=== PATIENT | male | born 2000 | race Caucasian/White ===

== ENCOUNTER 2021-06-19 23:42 | Emergency (ER) | payer OTHER ==
[~2021-06-19] VITALS: Ht 170.2 cm; Wt 77.0 kg
[2021-06-20 00:25] LABS: HEMATOCRIT 42.8 % (39.0-50.0); HEMOGLOBIN 14.4 g/dl (14.0-18.0); MEAN CELL VOLUME 92.8 fL CALC (80.0-100.0); MEAN CORPUSCULAR HGB 31.2 pG CALC (26.0-32.0); MEAN CORPUSCULAR HGB CONC 33.6 g/dL CAL (32.0-36.0); NEUT# 11.23 thou/uL (1.82-7.42); RED BLOOD COUNT 4.61 mill/uL (4.70-6.10); RED CELL DISTRI WIDTH 12.2 % (11.5-15.5)
[2021-06-20 00:32] LABS: ALBUMIN 4.6 g/dL (3.2-5.0); ALKALINE PHOSPHATASE 69 u/l (38-126); ANION GAP 20 (6-22 (CALC)); BILIRUBIN, TOTAL 0.6 mg/dL (0.0-1.4); BUN 14 mg/dL (9-20); BUN/CREATININE RATIO 14 (12-20 (CALC)); CARBON DIOXIDE 19 mmol/l (22-30); CHLORIDE 92 mmol/l (95-108); ETHYL ALCOHOL 0 mg/dl (0-30); GFR > 60 ML/MIN (>=60 (CALC)); GFR FOR AFR.AMER. > 60 ML/MIN (>=60 (CALC)); MAGNESIUM 1.3 mg/dL (1.6-2.3); POTASSIUM 3.6 mmol/l (3.5-5.1); SGOT/AST 39 u/l (17-59); SODIUM 128 mmol/l (137-146); TOTAL PROTEIN 7.3 g/dL (6.3-8.2)
[2021-06-20 00:34] LABS: URINE BILIRUBIN - DIPSTICK NEGATIVE (NEGATIVE); URINE BLOOD DIPSTICK NEGATIVE (NEGATIVE); URINE COLOR YELLOW; URINE GLUCOSE - DIPSTICK NEGATIVE (NEGATIVE); URINE KETONE NEGATIVE (NEGATIVE); URINE LEUK ESTERASE NEGATIVE (NEGATIVE); URINE PROTEIN - DIPSTICK NEGATIVE (NEG-TRACE); URINE SPECIFIC GRAVITY 1.015; URINE UROBILINOGEN - DIPSTICK 0.2 E.U./dL (0.2)
[2021-06-20 00:36] LABS: URINE NITRITE - DIPSTICK NEGATIVE (Negative)
[2021-06-20 06:49] LABS: HEMATOCRIT 41.4 % (39.0-50.0); HEMOGLOBIN 13.8 g/dl (14.0-18.0); MEAN CELL VOLUME 93.2 fL CALC (80.0-100.0); MEAN CORPUSCULAR HGB 31.1 pG CALC (26.0-32.0); MEAN CORPUSCULAR HGB CONC 33.3 g/dL CAL (32.0-36.0); NEUT# 7.66 thou/uL (1.82-7.42); RED BLOOD COUNT 4.44 mill/uL (4.70-6.10); RED CELL DISTRI WIDTH 12.3 % (11.5-15.5)
[2021-06-20 07:06] LABS: BUN 11 mg/dL (9-20); BUN/CREATININE RATIO 13 (12-20 (CALC)); CHLORIDE 102 mmol/l (95-108); CREATININE 0.8 mg/dL (0.7-1.3); GFR > 60 ML/MIN (>=60 (CALC)); GFR FOR AFR.AMER. > 60 ML/MIN (>=60 (CALC)); POTASSIUM 4.2 mmol/l (3.5-5.1)
[2021-06-20 07:07] LABS: ANION GAP 13 (6-22 (CALC)); CARBON DIOXIDE 24 mmol/l (22-30); SODIUM 135 mmol/l (137-146)
[2021-06-20 07:25] VITALS: BP 118/57
== END 2021-06-20 07:25 | disposition home or self-care (01) | DRG 897 ==
LOC: ED 23:42
PROVIDERS: Emergency Medicine
DX: F16.951 Hallucinogen use, unspecified with hallucinogen-induced psychotic disorder with hallucinations (principal)
CPT/HCPCS: J2060; J3475